=== PATIENT | male | born 1990 | race Caucasian/White ===

== ENCOUNTER 2024-05-19 19:08 | Emergency (ER) | payer SELFPAY ==
[2024-05-19 19:22] VITALS: BP 114/79; PULSE 64; RESP 16; TEMP 97.5; BMI 29.5
== END 2024-05-19 20:26 | disposition home or self-care (01) ==
LOC: FER 19:08
DX: R05.9 Cough, unspecified (principal); R09.81 Nasal congestion; M79.10 Myalgia, unspecified site; R51.9 Headache, unspecified; R07.89 Other chest pain; J06.9 Acute upper respiratory infection, unspecified; Z20.822 Contact with and (suspected) exposure to COVID-19
CPT/HCPCS: 0241U-QW; 71046-TC-FY; 93005; 99285-25